=== PATIENT | female | born 1960 | race Caucasian/White ===

== ENCOUNTER → 2017-03-07 | Outpatient (CLI) | payer BC, OTHER ==
--- NOTE | 2017-03-14 11:18 | MM ---
Reason for exam: screening (asymptomatic). Last mammogram was performed 1 year and 1 month ago. History: Patient has history of high-risk lesion on a previous biopsy at age 51. Family history of breast cancer in paternal cousin. High risk u/S left breast localization of the left breast, February 09, 2013. Benign US LT VAD breast biopsy of the left breast, September 27, 2011. High risk US LT VAD breast biopsy of the left breast, September 27, 2011. High risk US LT VAD breast biopsy of the left breast, September 27, 2011. Took hormonal contraceptives for 3 years beginning at age 17. Physical Findings: A clinical breast exam by your physician is recommended on an annual basis and results should be correlated with mammographic findings. MG Screening Mammo w CAD Bilateral CC and MLO view(s) were taken. Prior study comparison: February 19, 2016, bilateral MG screening mammo w CAD. February 16, 2015, bilateral MG 3d diag mammo w/cad [facility]. Previous mammotome biopsy in the left breast x 2. No significant changes when compared with prior studies. ASSESSMENT: Negative, BI-RAD 1 RECOMMENDATION: Routine screening mammogram of both breasts in 1 year.
== END | disposition home or self-care (01) ==
LOC: RADMAMWWP 07:50
PROVIDERS: ATTEND Family Medicine
DX: Z12.31 Encounter for screening mammogram for malignant neoplasm of breast (principal)

== ENCOUNTER 2017-04-02 08:32 | Day surgery (SDC) | payer BC, OTHER ==
[2017-03-31 12:25] VITALS: BMI 24.1
[~2017-04-02 08:32] MED LIST: LACTATED RINGERS 1,000 ML IV SCH; LIDOCAINE 1% 20 ML VIAL (10MG/ML) FOR IV START INTRADERMA PRN
[2017-04-02 09:06] VITALS: RESP 16; TEMP 97.5
--- NOTE | 2017-04-02 09:28 | P.GSHP ---
History of Present Illness H&P Date: 04/02/17 CHIEF COMPLAINT: Colon screen HISTORY OF PRESENT ILLNESS: The patient is a 56-year-old female who presents for colon screen. Lower endoscopy was offered for further evaluation and management. PAST MEDICAL HISTORY: Please see list. PAST SURGICAL HISTORY: Please see list. MEDICATIONS: Please see list. ALLERGIES: Please see list. SOCIAL HISTORY: No illicit drug use FAMILY HISTORY: No reports of Crohn disease or ulcerative colitis. REVIEW OF ORGAN SYSTEMS: CONSTITUTIONAL: No reports of fevers or chills. PHYSICAL EXAM: VITAL SIGNS: Stable GENERAL: Well-developed pleasant in no acute distress. HEENT: No scleral icterus. Extraocular movements grossly intact. Moist buccal mucosa. NECK: Supple without lymphadenopathy. CHEST: Unlabored respirations. Equal bilateral excursions. CARDIOVASCULAR: Regular rate and rhythm. Distal 2+ pulses. ABDOMEN: Soft, nontender, nondistended. MUSCULOSKELETAL: No clubbing, cyanosis, or edema. ASSESSMENT: 1. Colon screen. PLAN: 1. Recommend proceeding with a lower endoscopy Past Medical History Past Medical History: No Reported History Additional Past Medical History / Comment(s): family hx. colon cancer History of Any Multi-Drug Resistant Organisms: None Reported Past Surgical History: Breast Surgery, Cholecystectomy, Tonsillectomy Additional Past Surgical History / Comment(s): breast bx., colonoscopy Past Anesthesia/Blood Transfusion Reactions: No Reported Reaction Smoking Status: Never smoker - Past Family History Father Family Medical History: Cancer Additional Family Medical History / Comment(s): colon cancer Medications and Allergies Home Medications Medication Instructions Recorded Confirmed Type Biotin 10,000 mcg PO DAILY 03/31/17 04/02/17 History Calcium Carbonate/Vitamin D3 1 each PO DAILY 03/31/17 04/02/17 History [Calcium 600-Vit D3 400 Caplet] Multivit with Calcium,Iron,Min 1 each PO DAILY 03/31/17 04/02/17 History [Women's Multivitamin] Allergies Allergy/AdvReac Type Severity Reaction Status Date / Time ciprofloxacin [From Cipro] Allergy Rash/Hives Verified 04/02/17 09:14 Surgical - Exam Vital Signs Temp Pulse Resp BP Pulse Ox 97.5 F L 88 16 150/87 99 04/02/17 09:03 04/02/17 09:03 04/02/17 09:03 04/02/17 09:03 04/02/17 09:03
[2017-04-02] MEDS ORDERED: PROPOFOL 10 MG/ML 20 ML VIAL IV ONE (09:32)
--- NOTE | 2017-04-02 09:59 | P.PCN ---
Date of Procedure: 04/02/17 Description of Procedure: PREOPERATIVE DIAGNOSIS: Colonoscopy screening. Family history of colon cancer, father. POSTOPERATIVE DIAGNOSIS: Colonoscopy screening. Family history of colon cancer, father. External hemorrhoids, grade 2. OPERATION: Colonoscopy to the ileocecal valve and appendiceal orifice. SURGEON: Jolene Reed MD. ANESTHESIA: MAC. INDICATIONS: The patient is a 56-year-old female who presents for colonoscopy screening. Her last colonoscopy was 5 years ago. Benefits and risks were described and informed consent was obtained. DESCRIPTION OF PROCEDURE: The patient had undergone Gatorade, MiraLAX and Dulcolax prep. She had been brought into the operating room and laid in the left lateral decubitus position. After adequate intravenous sedation, the rectum was examined with 2% lidocaine jelly. External hemorrhoids were encountered. The rectal tone was within normal limits. No lesions were palpated in the rectal vault. An Olympus colonoscope was initially advanced to the sigmoid colon which was tortuous. The scope was exchanged for a pediatric colonoscope. The scope was advanced until the ileocecal valve and appendiceal orifice were clearly viewed. Abdominal wall pressures required. The prep was excellent with clear visualization of the mucosal folds. The scope was removed with visualization of each mucosal fold. No scattered diverticulosis was encountered. No colonic polyps were found. No evidence of focal colitis was found. Retroflexion of the scope demonstrated grade 1 internal hemorrhoids without active bleeding or inflammation. The colon was desufflated. The patient had tolerated the procedure well. Withdrawal time was over 6 minutes. FINDINGS: Internal hemorrhoids, grade 1 External prolapsed hemorrhoids, grade 2. No arteriovenous malformations. No adenomatous polyps. No focal colitis. RECOMMENDATIONS: Lower endoscopy in 5 years, 2022, with family history of colon cancer. Plan - Discharge Summary New Discharge Prescriptions: No Action Multivit with Calcium,Iron,Min [Women's Multivitamin] 1 each PO DAILY Calcium Carbonate/Vitamin D3 [Calcium 600-Vit D3 400 Caplet] 1 each PO DAILY Biotin 10,000 mcg PO DAILY Discharge Medication List Biotin 10,000 mcg PO DAILY 03/31/17 [History] Calcium Carbonate/Vitamin D3 [Calcium 600-Vit D3 400 Caplet] 1 each PO DAILY [History] Multivit with Calcium,Iron,Min [Women's Multivitamin] 1 each PO DAILY 03/31/17 [ History]
[2017-04-02 10:20] VITALS: BP 138/85; PULSE 90
== END 2017-04-02 10:39 | disposition home or self-care (01) ==
LOC: ORWHC2ENDO 08:32
PROVIDERS: ATTEND Surgery Plastic and Reconstructive Surgery
DX: Z12.11 Encounter for screening for malignant neoplasm of colon (principal); K64.0 First degree hemorrhoids; K64.4 Residual hemorrhoidal skin tags; Z80.0 Family history of malignant neoplasm of digestive organs; Z79.899 Other long term (current) drug therapy; Z88.1 Allergy status to other antibiotic agents
CPT/HCPCS: J2704; G0105; 45378

== ENCOUNTER → 2018-04-10 | Outpatient (CLI) | payer BC, OTHER ==
--- NOTE | 2018-04-14 07:56 | MM ---
Reason for exam: screening (asymptomatic). Last mammogram was performed 1 year and 1 month ago. History: Patient is postmenopausal and has history of high-risk lesion on a previous biopsy at age 51. Family history of breast cancer in paternal cousin. High risk u/S left breast localization of the left breast, February 09, 2013. Benign US LT VAD breast biopsy of the left breast, September 27, 2011. High risk US LT VAD breast biopsy of the left breast, September 27, 2011. High risk US LT VAD breast biopsy of the left breast, September 27, 2011. Took hormonal contraceptives for 3 years beginning at age 17. Physical Findings: A clinical breast exam by your physician is recommended on an annual basis and results should be correlated with mammographic findings. MG Screening Mammo w CAD Bilateral CC and MLO view(s) were taken. Prior study comparison: March 08, 2017, bilateral MG screening mammo w CAD. February 19, 2016, bilateral MG screening mammo w CAD. The breast tissue is heterogeneously dense. This may lower the sensitivity of mammography. Previous mammotome biopsy in the left breast x 2. No significant changes when compared with prior studies. ASSESSMENT: Negative, BI-RAD 1 RECOMMENDATION: Routine screening mammogram of both breasts in 1 year.
== END ==
LOC: RADMAMWWP 16:20
PROVIDERS: ATTEND Family Medicine
DX: Z12.31 Encounter for screening mammogram for malignant neoplasm of breast (principal)
CPT/HCPCS: 77067

== ENCOUNTER → 2019-05-04 | Outpatient (CLI) | payer BC, OTHER ==
--- NOTE | 2019-05-04 16:25 | BD ---
EXAMINATION TYPE: Axial Bone Density DATE OF EXAM: 05/04/2019 COMPARISON: NONE CLINICAL HISTORY: 58 YR OLD FEMALE.....ICD-10 CODE: Z13.820 OSTEOPOROSIS SCREENING Height: 61.2 Weight: 133 FRAX RISK QUESTIONS: NOTHING ADDITIONAL TO NOTE HERE RISK FACTORS HISTORY OF: Active: YES Postmenopausal woman: YES, AT AGE 56 YRS OLD Hyperparathyroidism: NO Adrenal Insufficiency: NO MEDICATIONS: Prednisone or other steroids: YES FOR ILLNESSES, JUST FINISHED DOSE PAC LAST WEEK Additional Medications: VIT D AND CALCIUM, AND ONE A DAY VITAMIN, BIOTIN Additional History: NOTHING TO NOTE HERE EXAM MEASUREMENTS: Bone mineral densitometry was performed using the Melon System. Bone mineral density as measured about the Lumbar spine is: ----- L1-L4(G/cm2): 1.453 T Score Values are as follows: ----- L1: 1.8 ----- L2: 2.6 ----- L3: 1.6 ----- L4: 2.9 ----- L1-L4: 2.3 Bone mineral density FIRST DEXA SCAN.......BASELINE STUDY Bone mineral density about the R hip (g/cm2): 0.954 Bone mineral density about the L hip (g/cm2): 0.963 T Score values are as follows: -----R Neck: -0.9 -----L Neck: -1.2 -----R Total: -0.4 -----L Total: -0.4 Bone mineral density BASELINE STUDY FRAX%s: THERE IS A 11.1% CHANCE FOR A MAJOR OSTEOPOROTIC FX AND A 0.8% FOR HIP.....PROBABILITY FO R FX IN 10 YRS TIME IMPRESSION: Osteopenia (T Score between -2.5 and -1). There is slightly increased risk of fracture and the patient may be considered for treatment. Re-Screen 2-5 years. NOTE: T-SCORE=SD OF THE YOUNG ADULT MEAN.
--- NOTE | 2019-05-05 13:01 | MM ---
Reason for exam: screening (asymptomatic). Last mammogram was performed 1 year and 1 month ago. History: Patient is postmenopausal and has history of high-risk lesion on a previous biopsy at age 51. Family history of breast cancer in paternal cousin. High risk u/S left breast localization of the left breast, February 09, 2013. Benign US LT VAD breast biopsy of the left breast, September 27, 2011. High risk US LT VAD breast biopsy of the left breast, September 27, 2011. High risk US LT VAD breast biopsy of the left breast, September 27, 2011. Took hormonal contraceptives for 3 years beginning at age 17. Physical Findings: A clinical breast exam by your physician is recommended on an annual basis and results should be correlated with mammographic findings. MG Screening Mammo w CAD Bilateral CC and MLO view(s) were taken. Prior study comparison: April 10, 2018, bilateral MG screening mammo w CAD. March 08, 2017, bilateral MG screening mammo w CAD. The breast tissue is heterogeneously dense. This may lower the sensitivity of mammography. Previous mammotome biopsy in the left breast x 2. No significant changes when compared with prior studies. ASSESSMENT: Benign, BI-RAD 2 RECOMMENDATION: Routine screening mammogram of both breasts in 1 year.
== END | disposition home or self-care (01) ==
LOC: RADMAMWWP 14:39
PROVIDERS: ATTEND Family Medicine
DX: Z13.820 Encounter for screening for osteoporosis (principal); M85.88 Other specified disorders of bone density and structure, other site
CPT/HCPCS: 77067; 77080

== ENCOUNTER → 2020-05-17 | Outpatient (CLI) | payer BC, OTHER ==
--- NOTE | 2020-05-19 11:43 | MM ---
Reason for exam: screening (asymptomatic). Last mammogram was performed 1 year ago. History: Patient is postmenopausal and has history of high-risk lesion on a previous biopsy at age 51. Family history of breast cancer in paternal cousin. High risk u/S left breast localization of the left breast, February 09, 2013. Benign US LT VAD breast biopsy of the left breast, September 27, 2011. High risk US LT VAD breast biopsy of the left breast, September 27, 2011. High risk US LT VAD breast biopsy of the left breast, September 27, 2011. Took hormonal contraceptives for 3 years beginning at age 17. Physical Findings: A clinical breast exam by your physician is recommended on an annual basis and results should be correlated with mammographic findings. MG 3D Screening Mammo W/Cad Bilateral CC and MLO view(s) were taken. Prior study comparison: May 04, 2019, bilateral MG screening mammo w CAD. April 10, 2018, bilateral MG screening mammo w CAD. The breast tissue is heterogeneously dense. This may lower the sensitivity of mammography. Previous mammotome biopsy in the left breast x 2. No significant changes when compared with prior studies. ASSESSMENT: Negative, BI-RAD 1 RECOMMENDATION: Routine screening mammogram of both breasts in 1 year.
== END ==
LOC: RADMAMWWP 08:33
PROVIDERS: ATTEND Family Medicine
DX: Z12.31 Encounter for screening mammogram for malignant neoplasm of breast (principal); Z78.0 Asymptomatic menopausal state; Z80.3 Family history of malignant neoplasm of breast
CPT/HCPCS: 77063; 77067

== ENCOUNTER → 2021-06-22 | Outpatient (CLI) | payer BC, OTHER ==
--- NOTE | 2021-06-25 11:35 | MM ---
Reason for exam: screening (asymptomatic). Last mammogram was performed 1 year and 1 month ago. History: Patient is postmenopausal and has history of high-risk lesion on a previous biopsy at age 51. Family history of breast cancer in paternal cousin. High risk u/S left breast localization of the left breast, February 09, 2013. Benign US LT VAD breast biopsy of the left breast, September 27, 2011. High risk US LT VAD breast biopsy of the left breast, September 27, 2011. High risk US LT VAD breast biopsy of the left breast, September 27, 2011. Took hormonal contraceptives for 3 years beginning at age 17. Physical Findings: A clinical breast exam by your physician is recommended on an annual basis and results should be correlated with mammographic findings. MG 3D Screening Mammo W/Cad Bilateral CC and MLO view(s) were taken. Prior study comparison: May 17, 2020, bilateral MG 3d screening mammo w/cad. May 04, 2019, bilateral MG screening mammo w CAD. The breast tissue is heterogeneously dense. This may lower the sensitivity of mammography. Previous mammotome biopsy in the left breast. There is no discrete abnormality. No significant changes when compared with prior studies. ASSESSMENT: Benign, BI-RAD 2 RECOMMENDATION: Routine screening mammogram of both breasts in 1 year.
== END | disposition home or self-care (01) ==
LOC: RADMAMWWP 16:28
PROVIDERS: ATTEND Family Medicine
DX: Z12.31 Encounter for screening mammogram for malignant neoplasm of breast (principal); Z78.0 Asymptomatic menopausal state; Z80.3 Family history of malignant neoplasm of breast
CPT/HCPCS: 77063; 77067

== ENCOUNTER → 2022-06-24 | Outpatient (CLI) | payer BC ==
--- NOTE | 2022-06-25 09:59 | MM ---
Reason for Exam: Screening (asymptomatic). Last screening mammogram was performed 12 month(s) ago. Patient History: Menarche at age 14. First Full-Term at age 23. Postmenopausal. Patient has history of breast feeding. Hormonal Contraceptives for 3 years from age 17 until age 20. 02/09/2013, High risk Excisional Biopsy on the left side. 09/27/2011, Benign Core Biopsy on the left side. 09/27/2011, High risk Core Biopsy on the left side. 09/27/2011, High risk Core Biopsy on the left side. Paternal cousin had breast cancer under age 50. Risk Values: Nina 5 year model risk: 1.9%. NCI Lifetime model risk: 9.7%. Prior Study Comparison: 05/04/2019 Bilateral Screening Mammogram, [facility]. 05/17/2020 Bilateral Screening Mammogram, [facility]. 06/22/2021 Bilateral Screening Mammogram, [facility]. Tissue Density: The breast tissue is heterogeneously dense. This may lower the sensitivity of mammography. Findings: Analyzed By CAD. There is no suspicious group of microcalcifications or new suspicious mass in either breast. Overall Assessment: Benign, BI-RAD 2 Management: Screening Mammogram of both breasts in 1 year. A clinical breast exam by your physician is recommended on an annual basis and results should be correlated with mammographic findings. Electronically signed and approved by: Delfino Burton M.D. Radiologis
== END | disposition home or self-care (01) ==
LOC: RADMAMWWP 16:27
PROVIDERS: ATTEND Family Medicine
DX: Z12.31 Encounter for screening mammogram for malignant neoplasm of breast (principal); Z78.0 Asymptomatic menopausal state; Z80.3 Family history of malignant neoplasm of breast
CPT/HCPCS: 77063; 77067

== ENCOUNTER → 2023-07-16 | Outpatient (CLI) | payer BC ==
--- NOTE | 2023-07-16 21:45 | MM ---
Reason for Exam: Screening (asymptomatic). Last mammogram was performed 1 year(s) and 1 month(s) ago. Patient History: Menarche at age 14. First Full-Term at age 23. Postmenopausal. Patient has history of breast feeding. Hormonal Contraceptives for 3 years from age 17 until age 20. 02/09/2013, High risk Excisional Biopsy on the left side. 09/27/2011, Benign Core Biopsy on the left side. 09/27/2011, High risk Core Biopsy on the left side. 09/27/2011, High risk Core Biopsy on the left side. Paternal cousin had breast cancer, age 35. Risk Values: Nina 5 year model risk: 2.0%. NCI Lifetime model risk: 9.5%. Prior Study Comparison: 05/17/2020 Bilateral Screening Mammogram, [facility]. 06/22/2021 Bilateral Screening Mammogram, [facility]. 06/24/2022 Bilateral MG 3D screening mammo w/cad, [facility]. Tissue Density: The breasts are heterogeneously dense, which may obscure small masses. Findings: Analyzed By CAD. The pattern is symmetrical. No significant interval change is evident. Biopsy clips are within the left breast. Benign calcifications in the right breast No suspicious groups of microcalcifications, spiculated or lobular masses, architectural distortion or other secondary signs of malignancy are mammographically apparent. Overall Assessment: Benign, BI-RAD 2 Management: Screening Mammogram of both breasts in 1 year. A negative mammogram report should not preclude additional follow up of suspicious palpable abnormalities. Patient should continue monthly self breast exam. A clinical breast exam by your physician is recommended on an annual basis and results should be correlated with mammographic findings. Note on Nina scores and lifetime risk: 1. A Nina score greater than 3% is considered moderate risk. If this is the case, consider specialist referral to assess eligibility for a risk reducing agent. 2. If overall lifetime risk for the development of breast cancer is 20% or higher, the patient may qualify for future screening with alternating mammogram and breast MRI. Electronically signed and approved by: Mason Gr D.O. Radiologis
== END | disposition home or self-care (01) ==
LOC: RADMAMWWP 16:26
PROVIDERS: ATTEND Family Medicine
DX: Z12.31 Encounter for screening mammogram for malignant neoplasm of breast (principal); Z80.3 Family history of malignant neoplasm of breast; Z78.0 Asymptomatic menopausal state
CPT/HCPCS: 77063; 77067

== ENCOUNTER → 2024-07-16 | Outpatient (CLI) | payer BC ==
--- NOTE | 2024-07-19 07:56 | MM ---
Reason for Exam: Screening (asymptomatic). Last screening mammogram was performed 12 month(s) ago. Patient History: Menarche at age 14. First Full-Term at age 23. Postmenopausal. Patient has history of breast feeding. Hormonal Contraceptives for 3 years from age 17 until age 20. 02/09/2013, High risk Excisional Biopsy on the left side. 09/27/2011, Benign Core Biopsy on the left side. 09/27/2011, High risk Core Biopsy on the left side. 09/27/2011, High risk Core Biopsy on the left side. Paternal cousin had breast cancer, age 35. Risk Values: Nina 5 year model risk: 2.1%. NCI Lifetime model risk: 9.2%. Prior Study Comparison: 06/22/2021 Bilateral Screening Mammogram, [facility]. 06/24/2022 Bilateral MG 3D screening mammo w/cad, [facility]. 07/16/2023 Bilateral MG 3D screening mammo w/cad, [facility]. Tissue Density: The breasts are heterogeneously dense, which may obscure small masses. Findings: Analyzed By CAD. Left breast biopsy clips. Right breast: There is no suspicious group of microcalcifications or new suspicious mass. Left breast: There is no suspicious group of microcalcifications or new suspicious mass. Overall Assessment: Negative, BI-RAD 1 Management: Screening Mammogram of both breasts in [address] [facility] will attempt to contact patient to return for supplemental views and ultrasound if indicated. Patient should continue monthly self-breast exams. A clinical breast exam by your physician is recommended on an annual basis. This exam should not preclude additional follow-up of suspicious palpable abnormalities. Note on Nina scores and lifetime risk: 1. A Nina score greater than 3% is considered moderate risk. If this is the case, consider specialist referral to assess eligibility for a risk reducing agent. 2. If overall lifetime risk for the development of breast cancer is 20% or higher, the patient may qualify for future screening with alternating mammogram and breast MRI. [facility], , 07/19/2024 7:53 AM. Electronically signed and approved by: Wale Hunter DO
== END | disposition home or self-care (01) ==
LOC: RADMAMWWP 16:19
PROVIDERS: ATTEND Family Medicine
DX: Z12.31 Encounter for screening mammogram for malignant neoplasm of breast (principal); R92.333 Mammographic heterogeneous density, bilateral breasts; Z78.0 Asymptomatic menopausal state; Z80.3 Family history of malignant neoplasm of breast; Z92.0 Personal history of contraception
CPT/HCPCS: 77063; 77067